=== PATIENT | female | born 1985 | race Caucasian/White ===

== ENCOUNTER 2018-03-03 21:02 | Emergency (ER) | payer OTHER ==
[~2018-03-03] VITALS: Ht 160 cm; Wt 84.6 kg
[2018-03-03 21:05] VITALS: TEMP 36.8; Ht 160 cm; Wt 84.6 kg
[2018-03-03] MEDS ORDERED: IBUPROFEN 200 MG TAB PO STA (21:19)
--- NOTE | 2018-03-03 21:42 | EMERGENCY ROOM VISIT NOTE ---
ED Visit Note First contact with patient: 21:08 CHIEF COMPLAINT: Toe pain HISTORY OF PRESENT ILLNESS: This patient is a 33-year-old female that presents to the emergency department complaining of right fifth toe pain after she accidentally kicked a chair. She has never injured the toe before. She denies any other injuries. She has not taken anything for pain. 1 of her friends johnny taped the toe. She denies any pain into the foot. REVIEW OF SYSTEMS: GENERAL: A 6 system review of systems was completed with positives and pertinent negatives in the HPI. ALLERGIES: Penicillin MEDICATIONS: Synthroid PMH: Hypothyroidism SOCIAL HISTORY: She does not smoke, occasional alcohol use, PHYSICAL EXAM: Vital Signs: Reviewed Nurse's notes, vital signs stable. GENERAL : 33-year-old female, in no acute distress, but appears in pain, well-developed , well-nourished. MUSCULOSKELATAL: The right fifth toe is slightly deformed laterally. Sensation in the distal aspect of the toe is intact. Capillary refill less than 2 seconds. Slight tenderness to palpation over the distal aspect of the fourth and fifth metatarsal. No tenderness over the rest of the foot. EMERGENCY DEPARTMENT COURSE: I examined the patient. An X-ray of the right fifth toe was reviewed by myself and radiology IMPRESSION: Mildly displaced oblique extra-articular fracture of the diaphysis of the proximal phalanx of the fifth toe. Electronically signed by: Chris Thorpe M.D. 03/03/2018 9:58 PM Dictated Date/Time: 03/03/2018 9:56 PM With gentle medial traction, the toe was then johnny taped to the fourth toe. The patient tolerated the procedure well. Neurovascular status was rechecked and intact. The patient was given a postop shoe. The patient was discharged home in good condition. DIAGNOSIS: Right fifth toe fracture TREATMENT: Ice and elevation for 24-48 hrs. Ibuprofen, 600mg and Tylenol 1000 mg every 6 hours for the pain. Avoid weight bearing and use the post-op shoe until the pain subsides and you can walk without a limp. Please follow-up with orthopedics. Call early next week for a follow-up appointment. Do not hesitate to return to the emergency department with any new or concerning symptoms. It was a pleasure participating in your care today This chart was completed in part utilizing [employer] Speech Voice Recognition software. Attempts were made to minimize the grammatical errors, random word insertions, pronoun errors and incomplete sentences. Any formal questions or concerns about the content, text or information contained within the body of this dictation should be directly addressed to the provider for clarification.
--- NOTE | 2018-03-03 22:00 | DIAGNOSTIC IMAGING REPORT ---
R TOE(S) MIN 2 VIEWS CLINICAL HISTORY: 33 years-old Female presenting with R 5th toe pain ? Fx/dislocation. TECHNIQUE: Frontal, oblique, and lateral views of the right fifth toe were obtained COMPARISON: None. FINDINGS: Oblique fracture of the diaphysis of the proximal phalanx of the fifth toe. There is 3 mm of lateral displacement of the distal fracture fragment. No disruption of the fifth metatarsophalangeal or proximal interphalangeal joints. Soft tissue swelling of the fifth toe. IMPRESSION: Mildly displaced oblique extra-articular fracture of the diaphysis of the proximal phalanx of the fifth toe. Electronically signed by: Chris Thorpe M.D. 03/03/2018 9:58 PM Dictated Date/Time: 03/03/2018 9:56 PM
[2018-03-03 22:12] VITALS: BP 139/100; PULSE 97; O2SAT 100
== END 2018-03-03 22:14 | disposition home or self-care (01) ==
LOC: C.EDB 21:03 → C.EDD 22:14
DX: S92.511A Displaced fracture of proximal phalanx of right lesser toe(s), initial encounter for closed fracture (principal); W22.03XA Walked into furniture, initial encounter; Z88.0 Allergy status to penicillin; Z79.899 Other long term (current) drug therapy; E03.9 Hypothyroidism, unspecified

== ENCOUNTER 2018-10-03 12:43 | Observation (INO) ==
[2018-10-03] MEDS ORDERED: BUPIVACAINE 0.5 % 5 MG/1 ML MPF 30ML VIAL ONE (14:14)
[2018-10-03] MEDS ORDERED: LIDOCAINE HCL 2% 2 ML VIAL/AMP(20MG/ML) INFIL ONE (14:17)
[2018-10-03] MEDS ORDERED: ONDANSETRON INJ 2 MG/ML 2 ML VIAL ONE (14:17)
[2018-10-03] MEDS ORDERED: GLYCOPYRROLATE 0.2 MG/ML VIAL ONE ×2 (14:17→15:56)
[2018-10-03] MEDS ORDERED: NEOSTIGMINE METHYLSULFATE 5 MG/5 ML SYR ONE (14:17)
[2018-10-03] MEDS ORDERED: fentaNYL citrate 100 MCG/2 ML VIAL ONE ×3 (14:17→16:16)
[2018-10-03] MEDS ORDERED: PROPOFOL IV EMULSION 10 MG/ML 20 ML VIAL IV ONE (14:17)
[2018-10-03] MEDS ORDERED: MIDAZOLAM HCL 1 MG/ML 2ML VIAL ONE (14:17)
[2018-10-03] MEDS ORDERED: DEXAMETHASONE SOD INJ 4 MG/ML VIAL ONE (14:17)
--- NOTE | 2018-10-03 14:47 | Anesthesiology Consultation ---
Date of Service October 03, 2018 Assessment & Plan (1) Encounter for pre-operative examination: Chart Review Chart Review: Acceptable Risk for Surgery and Patient NOT seen in Pre Admission Testing Consults Requested none ASA [id number] Proposed Anesthesia Anesthesia Type: General NPO Date Last Intake of Fluids: 10/03/18 Time Last Intake of Fluids: 10:00 Date Last Intake of Solids: 10/03/18 Time Last Intake of Solids: 10:00 History Surgery Operation Date: 10/03/18 07:10 Proposed Procedures p Left Laparoscopic Ectopic, Possible Open - Gentry R MD Safia Height/Weight Height: 5 ft 3 in Weight: 84.6 kg Allergies Allergy/AdvReac Type Severity Reaction Status Date / Time Penicillins Allergy Mild hives Verified 09/27/12 13:45 mivacurium AdvReac Mild abdominal Verified 09/27/12 13:45 pain Medications Home Medications Medication Instructions Recorded Confirmed Last Taken None (Patient States No Home Meds) #0 09/27/12 Unknown Social History Smoking Status: Never smoker Physical Exam Vital Signs Last Vital Signs Temp 37.1 C 10/03/18 14:31 Pulse 115 H 10/03/18 14:31 Resp 16 10/03/18 14:31 BP 136/94 10/03/18 14:31 Pulse Ox 100 10/03/18 14:31
[2018-10-03] MEDS ORDERED: HYDROmorphone INJ 2 MG/ML SYR/VIAL IV PRN (14:49)
[2018-10-03] MEDS ORDERED: ePHEDrine sulfate 50 MG/ML AMP IV PRN (14:49)
[2018-10-03] MEDS ORDERED: ATROPINE SULFATE 0.1 MG/ML 10ML SYR IV PRN (14:49)
--- NOTE | 2018-10-03 14:51 | History and Physical Report ---
DATE OF ADMISSION: 10/03/2018 CHIEF COMPLAINT: Left-sided ectopic with a visible heartbeat. HISTORY OF PRESENT ILLNESS: The patient is a 33-year-old 1, para 0. General health is complicated by hypothyroidism. She is on Synthroid 75 mcg daily. SHE IS ALLERGIC TO PENICILLIN WHICH GIVES HER HIVES. Her last menstrual period was 08/07/2018. She recently had some vaginal spotting. She did receive a RhoGAM injection and she was ultrasounded this morning which showed a left ectopic with a visible heartbeat and then she was told to come to the Emergency Room for surgical removal of the ectopic. PAST MEDICAL HISTORY: SHE IS ALLERGIC TO PENICILLIN. PAST SURGICAL HISTORY: Had her wisdom teeth removed. Had her gallbladder removed. MEDICAL HISTORY: She has been hypothyroid for about 3 years. SOCIAL HISTORY: No smoking, no excessive alcohol intake. Works at the [employer]. FAMILY HISTORY: Mom is 64 in good health. Father 83 in good health. No brothers or sisters. REVIEW OF SYSTEMS: She does have a history of migraine headaches when she is not . PHYSICAL EXAMINATION: GENERAL: Well-developed, well-nourished 33-year-old white female, alert, oriented x3 and cooperative in no acute distress, appeared her stated age. EYES: Conjunctivae are pink. Sclerae white, no evidence of jaundice. EARS: Had normal light reflex bilaterally. NOSE: Had normal mucosa. Septum is midline. HEART: Had regular rhythm. S1 and S2 are normal. LUNGS: Clear to auscultation and percussion. ABDOMEN: Revealed some tenderness in left lower quadrant. PELVIC: Revealed a small amount of bleeding from the cervix. MUSCULOSKELETAL: Revealed no calf tenderness. IMPRESSIONS OF THIS CASE: Status post wisdom teeth removal, status post cholecystectomy, hypothyroidism and a left-sided unruptured ectopic with a heartbeat.
[2018-10-03] MEDS ORDERED: BUPIVACAINE/EPINEPHRINE 0.5% MPF 1:200,000 30 ML VIAL ONE (15:36)
[2018-10-03] MEDS ORDERED: ROCURONIUM BROMIDE 10 MG/ML 5 ML VIAL ONE (15:56)
[2018-10-03] MEDS ORDERED: SUCCINYLCHOLINE CHLORIDE 20 MG/ML 10 ML VIAL ONE (15:56)
[2018-10-03] MEDS ORDERED: LARYING-O-JET KIT (LTA) ONE (15:56)
[2018-10-03] MEDS ORDERED: KETOROLAC 30 MG/ML VIAL ONE (16:17)
--- NOTE | 2018-10-03 16:50 | Post Operative Brief Note ---
Immediate Post Op Note v1 Date of Surgery October 03, 2018 Pre & Post Diagnosis Operation Date: 10/03/18 07:10 Pre-Op Diagnosis: Left Ectopic Post-Op Diagnosis: same as preop Procedure Operation Date: 10/03/18 07:10 Actual Procedures p Laparoscopic Left Salpingectomy (Left) - Gentry Baig MD Surgeon Gentry Baig MD Physician Assistant Psychiatry none Estimated Blood Loss 10 Findings Consistent with Post-Op Diagnosis Fluids 1200 ml Specimens left tube with ectopic Anesthesia Type General Complications none Disposition Accompanied Patient To Recovery: No Disposition: Recovery Room Overlapping Procedure I was immediately available: during the entire case.
[2018-10-03] MEDS ORDERED: ONDANSETRON INJ 2 MG/ML 2 ML VIAL IV PRN (16:51)
[2018-10-03] MEDS ORDERED: ALUMINUM/MAGNESIUM/SIMETH (MAALOX MAX) 30 ML UDC PO PRN (16:51)
[2018-10-03] MEDS ORDERED: ZOLPIDEM TARTRATE 5 MG TAB PO PRN (16:51)
[2018-10-03] MEDS ORDERED: ACETAMINOPHEN 325 MG TAB PO PRN (16:51)
[2018-10-03] MEDS ORDERED: LACTATED RINGER'S 1,000 ML IV SCH (18:30)
--- NOTE | 2018-10-03 19:57 | Anesthesiology Progress Note ---
Date of Service October 03, 2018 Anesthesia Post Procedure Vital Signs Vital Signs: Temp Pulse Pulse Pulse Resp BP BP 10/03/18 18:00 98 H 15 117/82 10/03/18 17:45 100 H 14 124/84 10/03/18 17:30 36.3 C L 94 H 14 131/77 10/03/18 17:20 104 H 15 137/82 10/03/18 17:10 95 H 16 129/78 10/03/18 17:00 100 H 16 131/77 10/03/18 16:50 36 C L 125 H 18 129/91 10/03/18 14:31 37.1 C 115 H 16 136/94 10/03/18 14:09 109 H 18 134/96 10/03/18 12:52 37.3 C 128 H 20 140/89 Pulse Ox 10/03/18 18:00 99 10/03/18 17:45 98 10/03/18 17:30 97 10/03/18 17:20 98 10/03/18 17:10 100 10/03/18 17:00 100 10/03/18 16:50 100 10/03/18 14:31 100 10/03/18 14:09 100 10/03/18 12:52 99 Pain Intensity Abdomen: Pain Intensity: 1 Notes Mental Status: alert / awake / arousable and participated in evaluation Patient Amnestic to Procedure: Yes Nausea / Vomiting: adequately controlled Pain: adequately controlled Airway Patency, RR, SpO2: stable & adequate BP & HR: stable & adequate Hydration State: stable & adequate Anesthetic Complications: no major complications apparent
--- NOTE | 2018-10-04 00:32 | Operative Report ---
DATE OF OPERATION: 10/03/2018 PROCEDURE: Laparoscopic salpingectomy for ectopic . INDICATIONS FOR SURGERY: Left-sided ectopic with a heartbeat on transvaginal ultrasound. POSTOPERATIVE DIAGNOSIS: Left-sided ectopic with a heartbeat on transvaginal ultrasound. Pathology pending. SURGEON: John GOINS MD ESTIMATED BLOOD LOSS: 10 mL ANESTHESIA: General. OPERATIVE FINDINGS AND PROCEDURE: The patient was brought to the OR table, correctly identified by armband and conversation. General anesthesia was administered. Perineum, vagina and abdomen were painted with an alcohol based sterilizing solution, draped in the usual sterile fashion. Catheter was used to empty the bladder. A weighted speculum was placed in the posterior vagina. The anterior lip of cervix grasped with single tooth tenaculum. An acorn cannula was inserted to cervical canal for manipulation of the uterus and then connected to the tenaculum. Following this, attention was turned to the abdomen. Subumbilical area was infiltrated with local with epinephrine. Stab wound was then placed a Veress needle was inserted into the abdominal cavity. Position was checked with normal saline. Then 3-4 L of carbon dioxide gas was passed under low pressure. Incision was then widened laterally. A 10-mm trocar sleeve was inserted. Trocar was removed and then a laparoscope was inserted. Good visualization of abdominal structures was obtained at this time. Second puncture site was made in the midline, 2 fingerbreadths above the pubic symphysis. This area was infiltrated with local with epinephrine. Stab wound was placed and a 5-mm trocar and sleeve was inserted. Trocar was removed and then a blunt probe was used to manipulate the pelvic organs. A left-sided ectopic was noted. The right fallopian tube was entirely normal. There were some adhesions of the epiploic appendage of the colon to the round ligament on the left side obstructing visualization of the ectopic . I used electric scissors to cauterize epiploic appendage away from the round ligament to get better visualization. I was then able to pull the ectopic and ovary out of the pelvis and up towards the abdominal wall. I placed a second puncture site in the left inguinal area by first injecting local with epinephrine and then inserting a 5-mm trocar and sleeve under direct visualization, which allowed me to have 2 instruments. I eventually used one instrument to hold the tube close to the abdominal wall and then I used a bipolar cauterization to cauterize the tube all along, to where it attached to the ovary and after I had a good cauterization with good blanching of the tissues, I used laparoscopic scissors to cut the tube away. I then held it in place and I put in a small tissue bag through a 5-mm port placed the specimen in the tissue bag and then pulled it out through the abdomen. I then irrigated everything the whole abdomen and pelvic area was good. Hemostasis was excellent. I took some photos. I then expressed the gas manually pulled the port, cleansed them with Betadine. I used subQ Vicryl to approximate the two 5 mm trocar ports, 10 mm trocar port. I visualized the fascia, put a [id number] suture of heavy Vicryl to approximate the fascial edges, then a subQ Vicryl and then interrupted Vicryl to approximate the skin edges. Following this, hemostasis was good. The patient tolerated the procedure well and left the OR in good condition. I attest to the content of the Intraoperative Record and any orders documented therein. Any exception s are noted below.
[2018-10-04] MEDS ORDERED: LEVOTHYROXINE SODIUM 75 MCG TABLET PO SCH (06:30)
--- NOTE | 2018-10-04 09:25 | Obstetrical Progress Note ---
Date of Service October 04, 2018 Physical Exam Vital Signs (Past 24 Hours): Last Vital Signs Temp 36.9 C 10/04/18 08:00 Pulse 90 10/04/18 08:00 Resp 18 10/04/18 08:00 BP 127/86 10/04/18 08:00 Pulse Ox 99 10/04/18 08:00 Physical Exam: abdomen soft and non tender vaginal bleeding scant to moderate post op hgb > 13 no calf tenderness ambulating well
--- NOTE | 2018-10-05 05:28 | Discharge Summary ---
Mrs. Blackwell was followed in the [facility] for care and delivery. On the day of admission, she underwent a transvaginal ultrasound to evaluate irregular spotting in the first trimester of . At this time, she was diagnosed with a left-sided ectopic and there was a visible heartbeat in the tube. Because of presence of cardiac activity, she was not considered to be a candidate for conservative therapy. She was admitted to the hospital where she underwent a laparoscopic left salpingectomy. Procedure went smooth. Bleeding was minimal. Actually, postop hemoglobin was over 13. We kept her overnight. She did well. She did not have a fever. In the morning, she was ambulating well, eating well. Her abdomen was soft and nontender. She had no CVA tenderness, no calf tenderness. She was given the usual instructions to call the [facility] if she had temperature over 100, if she had heavy bleeding which consisted of soaking a pad an hour for 2 hours or any redness in the incisional ports. She is also given a script to be off work until the following Monday and to return to [facility] for a postoperative followup.
== END 2018-10-04 09:50 | disposition home or self-care (01) ==
LOC: ED 12:43 → 4N 14:09 → OR 14:09

== ENCOUNTER 2019-09-11 10:02 | Observation (INO) ==
[2019-09-11] MEDS ORDERED: SODIUM CHLORIDE 0.9% 1000ML 1,000 ML IV SCH (11:00)
--- NOTE | 2019-09-11 11:02 | Emergency Department Note ---
ED Provider Note CHIEF COMPLAINT: Right lower quadrant pain, vaginal spotting, positive HISTORY OF PRESENTING ILLNESS: This is a 34-year-old female who presents to the emergency department by private vehicle with complaint of sharp right-sided lower abdominal pain that started today while she was at work. Patient states she is about 5 weeks , she was evaluated 2 days ago in the emergency department for vaginal spotting, but did not have any significant pain at that time. She states that the pain started suddenly today at work and has been severe and persistent, in the right lower side, worse with movement, better with rest, and she currently rates it as 7/10. She did not take any medication for the pain. She had associated nausea with the pain although this has now resolved and she did not vomit. She denies any fevers or chills. She does note that she has a history of an ectopic on the left about 1 year ago, she did have her left fallopian tube surgically removed at that time. She did not have a definite IUP identified on ultrasound 2 days ago, she is here because she is concerned for another ectopic . She is A1. She spoke with her ART SPECIALIST who told her to come here for further evaluation. She is continuing to have slight vaginal spotting, but denies any heavy bleeding. REVIEW OF SYSTEMS: A complete 10 point review of systems was reviewed with the patient with pertinent positives and negatives as per history of present illness. All else were negative. PAST MEDICAL HISTORY: Hypothyroidism, history of ectopic , cholecystectomy SOCIAL HISTORY: Lives at home with her , she denies tobacco use ALLERGIES: Reviewed in chart and with the patient PHYSICAL EXAM: CONSTITUTIONAL: Pleasant and cooperative. Nontoxic-appearing and in no acute distress. Well appearing and well nourished. HEENT: Normocephalic, atraumatic. PERRL, EOMI. NECK: Supple, full active range of motion without discomfort. RESPIRATORY: Clear to auscultation bilaterally with no wheezing, crackles, rhonchi or stridor. Equal expansion bilaterally. CARDIOVASCULAR: Regular rate and rhythm with no murmurs, rubs or gallops. Normal peripheral perfusion. No edema. GASTROINTESTINAL: Moderately tender to palpation in the right lower quadrant, no rebound tenderness or guarding. Abdomen is otherwise nontender, soft and nondistended. No palpable masses or HSM. Bowel sounds present in all quadrants. No CVA tenderness bilaterally. MUSCULOSKELETAL: Full range of motion of all joints without discomfort. INTEGUMENTARY: No rash or other significant dermatologic conditions noted. NEUROLOGIC: Alert and oriented X 4 with normal affect. Normal strength and sensation in all 4 extremities. Normal speech. Normal gait observed. ED COURSE AND MEDICAL DECISION MAKING: CC: Patient presenting with complaint of right lower quadrant pain, vaginal spotting positive DIFFERENTIAL DIAGNOSIS: Includes, but not limited to ectopic , ovarian cyst, ovarian torsion, appendicitis INTERPRETATION OF LABS: No leukocytosis, no anemia, normal platelets, no significant electrolyte abnormalities, normal renal function, normal liver enzymes. Coagulation factors within normal limits. Elevated hCG quant, slightly increased from 2 days ago. IMAGING: US OB transvaginal CLINICAL HISTORY: Right lower quadrant pain. Positive test. Evaluate for ectopic. COMPARISON STUDY: Pelvic ultrasound September 09, 2019. TECHNIQUE: Transabdominal and transvaginal sonography of the pelvis was performed. FINDINGS: Uterus measures 11.5 x 5.1 x 6.1 cm. Endometrium is thickened, measuring 2.8 cm in thickness. No intrauterine gestational sac is noted. The right ovary measures 2.9 x 2.3 x 2.5 cm and a 2.1 cm corpus luteal cyst. There are follicles within each ovary. There is no free fluid. No adnexal mass was identified. IMPRESSION: Thickened endometrium, measuring 2.8 cm in thickness. No intrauterine gestational sac identified. No adnexal mass. Given positive test, differential considerations include a normal early intrauterine gestation, sonographically occult ectopic and missed spontaneous . Close clinical follow-up, including serial beta hCG levels is recommended. MEDICATION RECONCILIATION: I attest that I have personally reviewed the patient's current medication list. INITIAL VITAL SIGNS REVIEW: I reviewed the patient's initial vital signs and interpret them as follows: T: Afebrile; BP: Normotensive; HR: Mildly tachycardic; RR: Within normal limits; Pulse Ox: Within normal limits on room air. Blood pressure screening: The patient was found to have normal blood pressure on screening and does not require follow-up for repeat blood pressure check. MDM SUMMARY: Patient was evaluated at bedside, history and physical exam performed. Patient is alert and oriented, no acute distress, resting calmly in the stretcher. She does have moderate tenderness to palpation in the right lower abdomen, but no acute abdomen. She is hemodynamically stable and afebrile. Pelvic exam was discussed with the patient, this was deferred per her request at this time. Orders were placed at bedside for labs including beta hCG quantitative level, IV fluid bolus for hydration as a precaution, pelvic ultrasound to evaluate for ectopic . Patient was offered something for pain, she declined. Patient discussed with Dr. Morales, who agrees with my assessment, plan, and disposition. Labs and imaging reviewed as above, labs are unremarkable. hCG quant is increased from 312 2 days ago to 442 today. Repeat pelvic ultrasound again does not demonstrate an IUP, and ectopic cannot be ruled out. I spoke on the phone with Dr. Baig, the on-call ART SPECIALIST, who recommended adding a progesterone level. He evaluated the patient and decided to admit for observation given the concern for ectopic . Patient reassessed multiple times throughout ED stay, she has remained hemodynamically stable and her pain is adequately controlled at this time. Patient and her were updated on all results and plan for the admission/observation, they were agreeable to this plan. The patient was stable at time of admission. The chart was completed utilizing [employer] Speech voice recognition software. Grammatical errors, random word insertions, pronoun errors, and incomplete sentences are an occasional consequence of this system due to software limitations, ambient noise, and hardware issues. Any formal questions or concerns about the content, text, or information contained within the body of this dictation should be directly addressed to the nurse practitioner for clarification. Impression & Plan Vaginal bleeding affecting early , Right sided abdominal pain Past Med/Surg History Social History Preferred Language: British Clinical Review Nurse Required: No Beliefs That Will Affect Care: None Current Living Situation: Spouse Feels Safe at Home: Yes Smoking Status: Never smoker Second Hand Exposure: No ; Hx Alcohol Use: Yes Alcohol type: wine Hx Substance Use: No Results & Data Vital Signs Vital Signs - 24 hr 09/11/19 10:27 09/11/19 12:54 09/11/19 16:03 Temperature 37.1 C Temperature Source Oral Pulse Rate 99 H Pulse Rate [Right Finger] 85 78 Respiratory Rate 16 18 18 Respiratory Depth Normal Normal Blood Pressure 135/89 Blood Pressure [Right Arm] 137/83 129/77 Blood Pressure Mean 104 Blood Pressure Mean [Right Arm] 101 94 Pulse Oximetry 100 98 98 Oxygen Delivery Method Room Air Room Air Room Air Sepsis Recent Fever Within 48 Hours No Sepsis New/Unexplained Change in Mental Status No Sepsis Action Taken by Nursing No Action Required Laboratory Data Result diagrams: 09/11/19 11:04 09/11/19 11:04 Lab Results 09/11/19 09/11/19 09/11/19 Range/Units 11:04 11:04 11:04 WBC 6.41 (4.8-10.8) K/uL RBC 4.63 (4.2-5.4) M/uL Hgb 14.2 (12.0-16.0) g/dL Hct 41.0 (37-47) % MCV 88.6 (80-100) fL MCH 30.7 (25-34) pg MCHC 34.6 (32-36) g/dL RDW Std Deviation 40.8 (36.4-46.3) fL RDW Coeff of Deb 12.8 (11.5-14.5) % Plt Count 252 (130-400) K/uL MPV 10.3 (7.4-10.4) fL Immature Gran % (Auto) 0.0 % Neut % (Auto) 59.0 % Lymph % (Auto) 32.1 % [place] % (Auto) 8.4 % Eos % (Auto) 0.3 % Baso % (Auto) 0.2 % Immature Gran # (Auto) 0.00 (0.00-0.02) K/uL Neut # (Auto) 3.78 (1.4-6.5) K/uL Lymph # (Auto) 2.06 (1.2-3.4) K/uL [place] # (Auto) 0.54 (0.11-0.59) K/uL Eos # (Auto) 0.02 (0-0.5) K/uL Baso # (Auto) 0.01 (0-0.2) K/uL PT 10.5 (9.0-12.0) Seconds INR 1.0 (0.9-1.1) APTT 24.8 (21.0-31.0) Seconds PTT Ratio 0.9 Sodium 138 (136-145) mmol/L Potassium 3.7 (3.5-5.1) mmol/L Chloride 106 (98-107) mmol/L Carbon Dioxide 26 (21-32) mmol/L Anion Gap 6.0 (3-11) BUN 10 (7-18) mg/dl Creatinine 0.94 (0.6-1.2) mg/dl Est Cr Clr Drug Dosing 83.6 ml/min Est GFR ( Amer) 91.1 Est GFR (Non-Af Amer) 78.6 BUN/Creatinine Ratio 10.6 (10-20) Glucose 77 (70-99) mg/dl Calcium 9.2 (8.5-10.1) mg/dl Total Bilirubin 0.5 (0.2-1) mg/dl AST 11 L (15-37) U/L ALT 25 (12-78) U/L Alkaline Phosphatase 38 L (45-117) U/L Total Protein 7.7 (6.4-8.2) gm/dl Albumin 4.3 (3.4-5.0) gm/dl Globulin 3.4 (2.5-4.0) gm/dl Albumin/Globulin Ratio 1.3 (0.9-2) Progesterone ng/ml HCG, Quant mIU/ml 09/11/19 09/11/19 Range/Units 11:04 11:04 WBC (4.8-10.8) K/uL RBC (4.2-5.4) M/uL Hgb (12.0-16.0) g/dL Hct (37-47) % MCV (80-100) fL MCH (25-34) pg MCHC (32-36) g/dL RDW Std Deviation (36.4-46.3) fL RDW Coeff of Deb (11.5-14.5) % Plt Count (130-400) K/uL MPV (7.4-10.4) fL Immature Gran % (Auto) % Neut % (Auto) % Lymph % (Auto) % [place] % (Auto) % Eos % (Auto) % Baso % (Auto) % Immature Gran # (Auto) (0.00-0.02) K/uL Neut # (Auto) (1.4-6.5) K/uL Lymph # (Auto) (1.2-3.4) K/uL [place] # (Auto) (0.11-0.59) K/uL Eos # (Auto) (0-0.5) K/uL Baso # (Auto) (0-0.2) K/uL PT (9.0-12.0) Seconds INR (0.9-1.1) APTT (21.0-31.0) Seconds PTT Ratio Sodium (136-145) mmol/L Potassium (3.5-5.1) mmol/L Chloride (98-107) mmol/L Carbon Dioxide (21-32) mmol/L Anion Gap (3-11) BUN (7-18) mg/dl Creatinine (0.6-1.2) mg/dl Est Cr Clr Drug Dosing ml/min Est GFR ( Amer) Est GFR (Non-Af Amer) BUN/Creatinine Ratio (10-20) Glucose (70-99) mg/dl Calcium (8.5-10.1) mg/dl Total Bilirubin (0.2-1) mg/dl AST (15-37) U/L ALT (12-78) U/L Alkaline Phosphatase (45-117) U/L Total Protein (6.4-8.2) gm/dl Albumin (3.4-5.0) gm/dl Globulin (2.5-4.0) gm/dl Albumin/Globulin Ratio (0.9-2) Progesterone 8.83 ng/ml HCG, Quant 442 mIU/ml Administered Medications Discontinued Medications Sodium Chloride (Nss 1000ml) 1,000 mls @ 999 mls/hr IV .[id number] Stop: 09/11/19 12:00 Last Infusion: 09/11/19 12:50 Dose: 0 mls/hr Documented by: [id number] Admin: 09/11/19 11:13 Dose: 999 mls/hr Documented by: [id number] Discharge Plan Visit Data Chief Complaint: Pelvic Pain Stated Complaint: POSSIBLE ECTOPIC ED Provider: Denia Morales ED Midlevel Provider: Chelsie Fernandez Discharge Problem: Vaginal bleeding affecting early , Right sided abdominal pain Patient Disposition: Admitted As Inpatient Condition: Good Forms Stand Alone Forms: My [employer] Prescriptions Prescriptions: No Action levothyroxine 75 mcg tablet 75 mcg PO QAM RF: 0 PNV cmb#[id number] fumarate-FA [] 28 mg iron- 800 mcg Tablet 1 tab PO HS RF: 0 Referrals Referrals: Dennis Wong, [Primary Care Provider] -
[2019-09-11 11:24] LABS: Basophils # (auto) 0.01 K/uL (0-0.2); Basophils % (auto) 0.2 %; Eosinophils # (auto) 0.02 K/uL (0-0.5); Eosinophils % (auto) 0.3 %; Hemoglobin 14.2 g/dL (12.0-16.0); Lymphocytes # (auto) 2.06 K/uL (1.2-3.4); Lymphocytes % (auto) 32.1 %; Mean Corpuscular Hemoglobin 30.7 pg (25-34); Mean Corpuscular Hgb Conc 34.6 g/dL (32-36); Mean Corpuscular Volume 88.6 fL (80-100); Mean Platelet Volume 10.3 fL (7.4-10.4); Monocytes # (auto) 0.54 K/uL (0.11-0.59); Monocytes % (auto) 8.4 %; Neutrophils # (auto) 3.78 K/uL (1.4-6.5); Platelet Count 252 K/uL (130-400); RDW Coefficient of Variation 12.8 % (11.5-14.5); RDW Standard Deviation 40.8 fL (36.4-46.3); Red Blood Count 4.63 M/uL (4.2-5.4); White Blood Count 6.41 K/uL (4.8-10.8)
[2019-09-11 11:35] LABS: Partial Thromboplastin Ratio 0.9; Partial Thromboplastin Time 24.8 Seconds (21.0-31.0); Prothrombin Time 10.5 Seconds (9.0-12.0)
[2019-09-11 11:40] LABS: Albumin Level 4.3 gm/dl (3.4-5.0); BUN Creatinine Ratio 10.6 (10-20); Calcium 9.2 mg/dl (8.5-10.1); Creatinine Clr Calc Pharmacy 83.6 ml/min; Est GFR (African American) 91.1; Est GFR (Non-African American) 78.6; Potassium 3.7 mmol/L (3.5-5.1)
[2019-09-11 11:43] LABS: Albumin Globulin Ratio 1.3 (0.9-2); Bilirubin,Total 0.5 mg/dl (0.2-1); Globulin 3.4 gm/dl (2.5-4.0); Total Protein 7.7 gm/dl (6.4-8.2)
--- NOTE | 2019-09-11 12:53 | Ultrasound Report ---
US OB transvaginal CLINICAL HISTORY: Right lower quadrant pain. Positive test. Evaluate for ectopic. COMPARISON STUDY: Pelvic ultrasound September 09, 2019. TECHNIQUE: Transabdominal and transvaginal sonography of the pelvis was performed. FINDINGS: Uterus measures 11.5 x 5.1 x 6.1 cm. Endometrium is thickened, measuring 2.8 cm in thicknes s. No intrauterine gestational sac is noted. The right ovary measures 2.9 x 2.3 x 2.5 cm and a 2.1 cm corpus luteal cyst. There are follicles within each ovary. There is no free fluid. No adnexal mass w as identified. IMPRESSION: Thickened endometrium, measuring 2.8 cm in thickness. No intrauterine gestational sac identified. No adnexal mass. Given positive test, differential considerations include a normal early intra uterine gestation, sonographically occult ectopic and missed spontaneous . Close cl inical follow-up, including serial beta hCG levels is recommended. ACT 112: Negative or not required by law. Electronically signed by: Haim Shipman M.D. 09/11/2019 12:52 PM
--- NOTE | 2019-09-11 14:35 | History and Physical Report ---
DATE OF ADMISSION: 09/11/2019 CHIEF COMPLAINT: Vaginal bleeding for 3 days right-sided adnexal pain. HISTORY OF PRESENT ILLNESS: The patient is a 2, para 0. She had a left ectopic removed. She had a total salpingectomy due to the fact that there was cardiac activity in the tube at the time it was diagnosed. Presently has been seen 2 times in the Emergency Room on Monday and then today. Her last normal period for this was 08/05/2019. She started bleeding. She has had bleeding for the past 3 days and has had 2 episodes of right-sided pain. Her ultrasound evaluation today of admission did not show any fluid in the cul-de-sac and did not show any visible masses in her remaining right tube. Endometrium was thickened. On Monday, her beta units were 312. I talked to the patient and her about the timing of the blood draw was exactly about 48 hours apart. Her second beta units were 440 and her progesterone level today was 8.8, presently being evaluated for potential right-sided ectopic in her remaining tube. PAST MEDICAL HISTORY: ALLERGIES: SHE IS ALLERGIC TO PENICILLIN, GIVES HER HIVES. PAST SURGICAL HISTORY: A year ago in 2019, she had a left salpingectomy done for ectopic with cardiac activity. She had a gallbladder removed several years ago and she is on medications for hypothyroidism. SOCIAL HISTORY: No smoking. No excessive alcohol intake. Works with a [employer]. FAMILY HISTORY: Mom 65 in good health. Father 84 in good health. No brothers or sisters. REVIEW OF SYSTEMS: She does have a history of migraine headaches. PHYSICAL EXAMINATION: GENERAL: Well-developed, well-nourished 34-year-old white female, alert and oriented x3 and cooperative in no acute distress, appears stated age. EYES: Conjunctivae are pink. Sclerae white, no evidence of jaundice. EARS: Had normal light reflex bilaterally. NOSE: Had normal mucosa. Septum is midline. There were no polyps. THROAT: No erythema or evidence of infection. Teeth are in good state of repair. HEAD: Normocephalic, normal distribution of hair. NECK: Supple. Trachea midline. Thyroid is not enlarged. There is no adenopathy appreciated. Both carotids are of good intensity. CHEST: Clear to auscultation and percussion. No wheezes, rales or rhonchi appreciated. HEART: Had regular rhythm. S1, S2 are normal. BREASTS: Normal. ABDOMEN: Soft and nontender. There is no tenderness to palpation. Speculum exam revealed a moderate amount of dark nonclotted blood. Bimanual exam did not reveal any tenderness on motion of the cervix or significant adnexal tenderness. MUSCULOSKELETAL: Revealed no calf tenderness. IMPRESSIONS OF THIS CASE: Status post cholecystectomy, hypothyroidism, history of a left-sided ectopic and potential right-sided ectopic versus early miscarriage.
[2019-09-11] MEDS ORDERED: IBUPROFEN 600 MG TAB PO PRN (19:32)
[2019-09-11] MEDS ORDERED: PRENATAL VITAMIN 1 TAB PO SCH (21:00)
[2019-09-12] MEDS ORDERED: LEVOTHYROXINE SODIUM 75 MCG TABLET PO SCH (06:30)
--- NOTE | 2019-09-12 08:27 | Obstetrical Progress Note ---
Date of Service September 12, 2019 Assessment & Plan (1) Abnormal human chorionic gonadotropin (hCG): 34 yo female with positive BHCG, declined since admission, yesterday VSS, Afebrile, doing well NO pain Normal pelvic and PE H&H stable Plan to d/c home with ectopic precautions Repeat BHCG on All questions were answered Admission and Anticipated Discharge Date Admission Date: September 11, 2019 Subjective Patient is seen and examined I reviewed her chart and history and got sign out from Dr Baig She feels well, no complaints No pain since yesterday 12 noon Mild spotting, passed 2 large cloths in ER yesterday No N&V/ Fever/ chills/ dizziness PE: Alert orientedx3, NAD Abd: soft, NT, ND, no rebound No pain with hip ROM No VB Lab Results 09/11/19 09/11/19 09/11/19 Range/Units 11:04 11:04 11:04 WBC 6.41 (4.8-10.8) K/uL RBC 4.63 (4.2-5.4) M/uL Hgb 14.2 (12.0-16.0) g/dL Hct 41.0 (37-47) % MCV 88.6 (80-100) fL MCH 30.7 (25-34) pg MCHC 34.6 (32-36) g/dL RDW Std Deviation 40.8 (36.4-46.3) fL RDW Coeff of Deb 12.8 (11.5-14.5) % Plt Count 252 (130-400) K/uL MPV 10.3 (7.4-10.4) fL Immature Gran % (Auto) 0.0 % Neut % (Auto) 59.0 % Lymph % (Auto) 32.1 % [place] % (Auto) 8.4 % Eos % (Auto) 0.3 % Baso % (Auto) 0.2 % Immature Gran # (Auto) 0.00 (0.00-0.02) K/uL Neut # (Auto) 3.78 (1.4-6.5) K/uL Lymph # (Auto) 2.06 (1.2-3.4) K/uL [place] # (Auto) 0.54 (0.11-0.59) K/uL Eos # (Auto) 0.02 (0-0.5) K/uL Baso # (Auto) 0.01 (0-0.2) K/uL PT 10.5 (9.0-12.0) Seconds INR 1.0 (0.9-1.1) APTT 24.8 (21.0-31.0) Seconds PTT Ratio 0.9 Sodium 138 (136-145) mmol/L Potassium 3.7 (3.5-5.1) mmol/L Chloride 106 (98-107) mmol/L Carbon Dioxide 26 (21-32) mmol/L Anion Gap 6.0 (3-11) BUN 10 (7-18) mg/dl Creatinine 0.94 (0.6-1.2) mg/dl Est Cr Clr Drug Dosing 83.6 ml/min Est GFR ( Amer) 91.1 Est GFR (Non-Af Amer) 78.6 BUN/Creatinine Ratio 10.6 (10-20) Glucose 77 (70-99) mg/dl Calcium 9.2 (8.5-10.1) mg/dl Total Bilirubin 0.5 (0.2-1) mg/dl AST 11 L (15-37) U/L ALT 25 (12-78) U/L Alkaline Phosphatase 38 L (45-117) U/L Total Protein 7.7 (6.4-8.2) gm/dl Albumin 4.3 (3.4-5.0) gm/dl Globulin 3.4 (2.5-4.0) gm/dl Albumin/Globulin Ratio 1.3 (0.9-2) Progesterone ng/ml HCG, Quant mIU/ml 09/11/19 09/11/19 09/12/19 Range/Units 11:04 11:04 05:51 WBC (4.8-10.8) K/uL RBC (4.2-5.4) M/uL Hgb (12.0-16.0) g/dL Hct (37-47) % MCV (80-100) fL MCH (25-34) pg MCHC (32-36) g/dL RDW Std Deviation (36.4-46.3) fL RDW Coeff of Deb (11.5-14.5) % Plt Count (130-400) K/uL MPV (7.4-10.4) fL Immature Gran % (Auto) % Neut % (Auto) % Lymph % (Auto) % [place] % (Auto) % Eos % (Auto) % Baso % (Auto) % Immature Gran # (Auto) (0.00-0.02) K/uL Neut # (Auto) (1.4-6.5) K/uL Lymph # (Auto) (1.2-3.4) K/uL [place] # (Auto) (0.11-0.59) K/uL Eos # (Auto) (0-0.5) K/uL Baso # (Auto) (0-0.2) K/uL PT (9.0-12.0) Seconds INR (0.9-1.1) APTT (21.0-31.0) Seconds PTT Ratio Sodium (136-145) mmol/L Potassium (3.5-5.1) mmol/L Chloride (98-107) mmol/L Carbon Dioxide (21-32) mmol/L Anion Gap (3-11) BUN (7-18) mg/dl Creatinine (0.6-1.2) mg/dl Est Cr Clr Drug Dosing ml/min Est GFR ( Amer) Est GFR (Non-Af Amer) BUN/Creatinine Ratio (10-20) Glucose (70-99) mg/dl Calcium (8.5-10.1) mg/dl Total Bilirubin (0.2-1) mg/dl AST (15-37) U/L ALT (12-78) U/L Alkaline Phosphatase (45-117) U/L Total Protein (6.4-8.2) gm/dl Albumin (3.4-5.0) gm/dl Globulin (2.5-4.0) gm/dl Albumin/Globulin Ratio (0.9-2) Progesterone 8.83 4.70 ng/ml HCG, Quant 442 mIU/ml 09/12/19 Range/Units 05:51 WBC (4.8-10.8) K/uL RBC (4.2-5.4) M/uL Hgb (12.0-16.0) g/dL Hct (37-47) % MCV (80-100) fL MCH (25-34) pg MCHC (32-36) g/dL RDW Std Deviation (36.4-46.3) fL RDW Coeff of Deb (11.5-14.5) % Plt Count (130-400) K/uL MPV (7.4-10.4) fL Immature Gran % (Auto) % Neut % (Auto) % Lymph % (Auto) % [place] % (Auto) % Eos % (Auto) % Baso % (Auto) % Immature Gran # (Auto) (0.00-0.02) K/uL Neut # (Auto) (1.4-6.5) K/uL Lymph # (Auto) (1.2-3.4) K/uL [place] # (Auto) (0.11-0.59) K/uL Eos # (Auto) (0-0.5) K/uL Baso # (Auto) (0-0.2) K/uL PT (9.0-12.0) Seconds INR (0.9-1.1) APTT (21.0-31.0) Seconds PTT Ratio Sodium (136-145) mmol/L Potassium (3.5-5.1) mmol/L Chloride (98-107) mmol/L Carbon Dioxide (21-32) mmol/L Anion Gap (3-11) BUN (7-18) mg/dl Creatinine (0.6-1.2) mg/dl Est Cr Clr Drug Dosing ml/min Est GFR ( Amer) Est GFR (Non-Af Amer) BUN/Creatinine Ratio (10-20) Glucose (70-99) mg/dl Calcium (8.5-10.1) mg/dl Total Bilirubin (0.2-1) mg/dl AST (15-37) U/L ALT (12-78) U/L Alkaline Phosphatase (45-117) U/L Total Protein (6.4-8.2) gm/dl Albumin (3.4-5.0) gm/dl Globulin (2.5-4.0) gm/dl Albumin/Globulin Ratio (0.9-2) Progesterone ng/ml HCG, Quant 218 mIU/ml Review of Systems Review of Systems: All systems reviewed & are unremarkable except as noted in HPI & below Results & Data ([facility]) Vital Signs (Past 12 Hours) Vital Signs Temp Pulse Pulse Resp BP Pulse Ox 09/12/19 08:00 36.8 C 83 18 124/82 99 09/12/19 03:30 36.8 C 68 14 119/62 99 09/11/19 23:25 36.9 C 72 14 102/63 100
--- NOTE | 2019-09-17 12:04 | Discharge Summary ---
DETAILS OF ADMISSION: The patient is a 34-year-old G2, P0-0-1-0, who has a history of left ectopic and left salpingectomy in 2019, presented to ER with spotting, vaginal bleeding for the last 3 days and a positive test. Her beta hCG was 312 on 09/09, which increased to 440 in 2 days. Her progesterone level was 8.8. She had pain about 2 hours and then she came to the ER, she was admitted for observation, possible ectopic . She stayed overnight. Her pain has gone. It lasted only 2 hours per patient and she had no pain almost for 24 hours. Her vital signs were stable, afebrile. Her H and H was 14/41. Her physical exam was unremarkable. Her pelvic exam was normal with no tenderness. Abdomen has no tenderness. She was discharged home on 09/12/2019 with discharge instructions when to call and repeat beta hCG in 48 hours. All questions were answered.
== END 2019-09-12 09:48 | disposition home or self-care (01) ==
LOC: 4N 10:02 → ED 10:02 → 4N 18:09